=== PATIENT | female | born 1960 | race Caucasian/White ===

== ENCOUNTER 2017-08-20 08:49 | Day surgery (SDC) | payer BC ==
[~2017-08-20] VITALS: Ht 162.6 cm; Wt 76.8 kg
[~2017-08-20 08:49] MED LIST: ADVIL200 MG PO; ASCORBIC ACID250 MG PO; BIOTIN10000 MC1 PO; BLACK COHOSH200 MG PO; EFFEXOR37.5 MG PO; VITAMIN B-121000 MC1 SL
[2017-08-20 09:16] VITALS: BP 134/87
[2017-08-20 13:35] VITALS: BP 150/68
[2017-08-20 15:37] VITALS: BP 128/59
[2017-08-20 19:39] VITALS: BP 124/60
[2017-08-21 00:05] VITALS: BP 104/58
[2017-08-21 03:40] VITALS: BP 103/61
[2017-08-21 07:16] VITALS: BP 127/66
[2017-08-21 07:39] LABS: HEMATOCRIT 41.9 % (36.0-46.0); MCHC 32.5 G/DL (30.0-36.0); MCV 92.5 FL (83-99); MEAN PLAT.VOLUME 10.2 uM^3 (9.5-12.4); PLATELET COUNT 238 K/uL (156-360); RBC DIS.WIDTH-CV 13.2 % (11.8-14.6); RBC DIS.WIDTH-SD 45.1 % (39-53); RED BLOOD COUNT 4.53 M/uL (3.80-5.20); WHITE BLOOD COUNT 12.2 K/uL (4.1-10.2)
[2017-08-21 08:03] LABS: ANION GAP 8 MEQ/L (2-14); CHLORIDE 103 MEQ/L (99-109); GFR ESTIMATE (CALCULATED) > 59 mL/min/; SAMPLE HEMOLYSIS CHECK 0; SAMPLE ICTERIC CHECK 0; SAMPLE LIPEMIA CHECK 0; SODIUM 139 MEQ/L (136-147); UREA NITROGEN (BUN) 11 mg/dL (9-23)
[2017-08-21 08:06] LABS: GLUCOSE 113 mg/dL (70-99)
[2017-08-21 09:59] VITALS: BP 126/68
== END 2017-08-21 10:04 | disposition home or self-care (01) ==
LOC: SDC 08:49 → 2SOUTH 10:10 → EDSTATUS 11:11 → SDC 11:12 → 2SOUTH 11:45 → ENRESERV 11:46 → SDC 11:59 → ENRESERV 12:01 → 2EASTP 13:05
PROVIDERS: Obstetrics & Gynecology Gynecologic Oncology
DX: C51.9 Malignant neoplasm of vulva, unspecified (principal); R59.0 Localized enlarged lymph nodes
CPT/HCPCS: 80048; 85027; 86850; 86900; 86901; 86920; 88305; G0378; J0131; J0690; J1100; J1650; J2250; J2405; J3010